=== PATIENT | female | born 1970 | race Caucasian/White ===

== ENCOUNTER → 2017-11-03 | Outpatient (CLI) | payer OTHER ==
[~2017-11-03] MED LIST: ALBU90OI INH; AMLO5 PO; ASPI81CH PO; Advair Hfa 230-12 GM INH; Desyrel50 MG PO; EPIPEN0.3 MG/0.3 IM; GABA300 PO; GLIP5 PO; LOSHYD100 PO; METF500C PO; PIOG15 PO; Pulmicort Flex90 MCG IH; SERT50 PO; VENL37.5ER PO; [UNRECOGNIZED DRUG - OTHER] PO; [UNRECOGNIZED DRUG - OTHER] TOP
[2017-11-04 14:09] LABS: HPV 16 Negative (Negative); HPV 18 Negative (Negative); HPV OTHER HR TYPES Negative (Negative)
== END ==
LOC: LAB SHORT 11:38 → LAB 11:38
PROVIDERS: Registered Nurse Community Health
DX: Z12.4 Encounter for screening for malignant neoplasm of cervix (principal)
CPT/HCPCS: 87624; G0123

== ENCOUNTER → 2017-12-22 | Outpatient (CLI) | payer OTHER | END | disposition home or self-care (01) | LOC: LAB SHORT 15:28 → LAB 15:28 | DX: N89.8 Other specified noninflammatory disorders of vagina (principal) | CPT/HCPCS: 87070; 87205 ==

== ENCOUNTER 2018-06-29 16:04 | Inpatient (IN) | payer OTHER ==
[~2018-06-29] VITALS: Ht 157.5 cm; Wt 116.4 kg
[~2018-06-29 16:04] MED LIST changes: +ALBU3IS NEB; +CYCL10 PO; +FENO48 PO; +FLUTICASONE-SA1 EAC2 INH; +Hydroxyzine HCl50 MG PO; +LOSA25; +LOSARTAN-HCTZ1 EAC1 PO; +SERT100 PO
[2018-07-02] MEDS ORDERED: GLIP5 PO (07:14)
[2018-07-02] MEDS ORDERED: AMLO5 PO (07:15)
[2018-07-02] MEDS ORDERED: HYDPAM50 PO (07:17)
--- NOTE | 2018-07-02 07:20 | NUR ---
PATIENT GAVE ME PERMISSION TO CARE FOR HER TODAY 07/02/18. History, Chart, Medications and Allergies reviewed before start of procedure.Patient confirms NPO status and agrees with scheduled surgery. Patient reports completing Chlorhexadine shower X2 prior to admission to hospital.Surgical site prepped with 2% Chlorhexidine cloth wipe. Lungs clear T/O to Auscultation.
--- NOTE | 2018-07-02 07:38 | NUR ---
STUDENT NURSE BRYN ASSISSTING WITH PREOPERATIVE CARE. AGREE WITH HER CHARTING AND CARE.
--- NOTE | 2018-07-02 10:30 | NUR ---
REPORT FROM PACU.
--- NOTE | 2018-07-02 10:46 | NUR ---
PT TO ROOM 231 FROM PACU VIA BED.
--- NOTE | 2018-07-02 10:50 | NUR ---
ICE WATER AND JELLO/CRACKERS PROVIDED. VSS.
--- NOTE | 2018-07-02 11:50 | NUR ---
PT MEDICATED WITH 1 OXY PO PER EMAR. CLIMARA PATCH APPLIED TO PT.
--- NOTE | 2018-07-02 12:10 | NUR ---
LUNCH TRAY PROVIDED TO PT. PT STATES SHE IS COMFORTABLE AT THIS TIME. DENIES NEEDS.
--- NOTE | 2018-07-02 12:48 | NUR ---
PT RESTING IN POSTITION OF COMFORT. PERSONAL FAN PROVIDED TO PT PER REQUEST. NO OTHER COMPLAINTS NOTED.
--- NOTE | 2018-07-02 13:45 | NUR ---
2 DAVID PROVIDED TO PT PER REQUEST. DENIES OTHER NEEDS. PT FAMILY APPEARS TO BE SLEEPING IN CHAIR.
--- NOTE | 2018-07-02 14:40 | NUR ---
PER PT REQUEST OUTSIDE SOUP LIKE MEAL MICROWAVED FOR PT AND HER .
--- NOTE | 2018-07-02 15:22 | NUR ---
PT UP OUT OF BED WITH 1 PERSON ASSIST. PT USES HOME WALKER. AMB APPROX 15FT. ASSISTED BACK TO BED. AMES EMPTIED. PT STATES SHE NAUSEATED.
--- NOTE | 2018-07-02 15:38 | NUR ---
PT MEDICATED WITH 4MG ZOFRAN IV FOR NAUSEA. ALSO MEDICATED WITH 5MG OXY FOR C/O PAIN 12/08.
--- NOTE | 2018-07-02 16:34 | NUR ---
PT MEDICATED WITH TORADOL. PAIN 07/08. STATES NAUSEA IMPROVED. ASKING FOR SOMETHING TO EAT AND ROOT BEER. EXPLAINED TO PT THAT I WILL ORDER ADDITIONAL FOOD ITEMS FROM [employer].
--- NOTE | 2018-07-02 17:00 | NUR ---
ASSUMED CARE OF PATIENT AT THIS TIME. SPOUSE AT BEDSIDE, DENIES ANY NEEDS. DINNER TRAY BROUGHT FOR PATIENT AND SPOUSE.
--- NOTE | 2018-07-02 19:22 | NUR ---
pt has been stable since this rn assumed care. iv fluids infusing. pt min assist oob. binder on. pas to ble. marita to be dc'd in the am. po meds reported effective for pain. uses call light appropriately.
[2018-07-03 05:03] LABS: BASOPHILS ABSOLUTE AUTO 0.02 K/mm3 (0.00-0.23); BASOPHILS PERCENT AUTO 0 % (0-2); EOSINOPHILS ABSOLUTE AUTO 0.01 K/mm3 (0.00-0.68); EOSINOPHILS PERCENT AUTO 0 % (0-6); Hematocrit 37.7 % (33.0-51.0); IMMATURE GRAN ABSOLUTE AUTO 0.08 K/mm3 (0.00-0.10); IMMATURE GRAN PERCENT AUTO 1 % (0-1); LYMPHOCYTES ABSOLUTE AUTO 1.38 K/mm3 (0.84-5.20); LYMPHOCYTES PERCENT AUTO 9 % (21-46); MONOCYTES ABSOLUTE AUTO 1.01 K/mm3 (0.16-1.47); MONOCYTES PERCENT AUTO 6 % (4-13); Mean Corpuscular HGB Conc 31.8 g/dL (31.5-36.5); Mean Corpuscular Volume 88 fL (80-100); Mean Platelet Volume 9.9 fL (9.1-12.4); NEUTROPHILS ABSOLUTE AUTO 13.34 K/mm3 (1.96-9.15); NEUTROPHILS PERCENT AUTO 84 % (41-73); Platelet Count 169 K/mm3 (150-400); RDW Coefficient Variation 13.8 % (11.7-14.2); RDW Standard Deviation 44.1 fL (35.1-46.3); Red Blood Cell Count 4.28 M/mm3 (3.80-5.20); White Blood Cell Count 15.84 K/mm3 (4.00-11.30)
--- NOTE | 2018-07-03 06:28 | NUR ---
SUMMARY: PT IS POD1 LAVH. PT DID WELL OVERNIGHT. VSS, A/O. HAS BEEN UP WALKING, MINIMAL ASSIST. MEDICATED FOR PAIN PRN, SEE EMAR. SURGICAL SITE WNL, NO VAGINAL BLEED NOTED. PT TOLERATING REGULAR DIET. REPORTS PASSING GAS SEVERAL TIMES. NO ACUTE CONCERNS AT THIS TIME.
--- NOTE | 2018-07-03 14:16 | NUR ---
PT MEDICATED WITH 1 OXY PER EMAR. 2 DAVID RUCKER.
--- NOTE | 2018-07-03 17:26 | NUR ---
SHIFT SUMMARY NO ACUTE CHANGES THIS SHIFT. VSS. PT TAKING 1-2 PERCOCET FOR PAIN. TRANSVERSE INCISION CDI. PT VOIDING SMALL AMOUNTS FREQUENTLY. BLADDER SCAN SHOWS MINIMAL URINE RETAINING IN BLADDER. PT AMBULATING HALLWAYS WITH WALKER INDEP. DINESH REG PO INTAKE. PASSING GAS. SMALL VAGINAL BLEEDING. PT RECEIVING IV ABX AND REPEAT LABS IN THE MORNING. PT USES CALL LIGHT APPROPRIATELY.
[2018-07-04 04:57] LABS: BASOPHILS ABSOLUTE AUTO 0.04 K/mm3 (0.00-0.23); BASOPHILS PERCENT AUTO 0 % (0-2); EOSINOPHILS ABSOLUTE AUTO 0.14 K/mm3 (0.00-0.68); EOSINOPHILS PERCENT AUTO 2 % (0-6); Hematocrit 37.7 % (33.0-51.0); Hemoglobin 11.6 g/dL (11.5-16.0); IMMATURE GRAN ABSOLUTE AUTO 0.04 K/mm3 (0.00-0.10); IMMATURE GRAN PERCENT AUTO 0 % (0-1); LYMPHOCYTES ABSOLUTE AUTO 2.69 K/mm3 (0.84-5.20); LYMPHOCYTES PERCENT AUTO 30 % (21-46); MONOCYTES ABSOLUTE AUTO 0.63 K/mm3 (0.16-1.47); MONOCYTES PERCENT AUTO 7 % (4-13); Mean Corpuscular HGB 27.3 pg (26.0-34.0); Mean Corpuscular HGB Conc 30.8 g/dL (31.5-36.5); Mean Corpuscular Volume 89 fL (80-100); Mean Platelet Volume 9.6 fL (9.1-12.4); NEUTROPHILS ABSOLUTE AUTO 5.55 K/mm3 (1.96-9.15); NEUTROPHILS PERCENT AUTO 61 % (41-73); Platelet Count 155 K/mm3 (150-400); RDW Coefficient Variation 14.1 % (11.7-14.2); RDW Standard Deviation 45.1 fL (35.1-46.3); Red Blood Cell Count 4.25 M/mm3 (3.80-5.20); White Blood Cell Count 9.09 K/mm3 (4.00-11.30)
--- NOTE | 2018-07-04 07:00 | NUR ---
recvd report from previous shift rn summer, pt sleeping in room, bed in lowest position, call light within reach, bed rails up x 2
--- NOTE | 2018-07-04 09:20 | NUR ---
pt states she has [facility] ambulance for transport. RN will call
--- NOTE | 2018-07-04 11:18 | NUR ---
[facility] notified, will return call notify surgical floor for transport time
[2018-07-04] MEDS ORDERED: Percocet 5-3251 EACH PO (11:40)
[2018-07-04] MEDS ORDERED: IBUP800 PO (11:40)
--- NOTE | 2018-07-04 12:49 | NUR ---
pt's transport arranged for 1300, pt provided with discharge instructions and printed materials, written prescriptions. pt dressed. peripheral IV removed WNL. pt states understanding of discharge instructions. pt ambulating in hallway, will await transportation
--- NOTE | 2018-07-04 13:00 | NUR ---
transport arrived to take pt home, pt escorted to taxi via wheelchair with belongings taken to vehicle
== END 2018-07-04 12:58 | disposition home or self-care (01) | DRG 742 ==
LOC: SURS 07-02 06:01 → PRE IP 07-02 07:30 → SURS 07-02 10:48
PROVIDERS: ADMIT Obstetrics & Gynecology
PROC: 0UT90ZZ Resection of Uterus, Open Approach (ICD-10-PCS; principal; 2018-07-02 07:30)
PROC: 0UB10ZZ Excision of Left Ovary, Open Approach (ICD-10-PCS; 2018-07-02 07:30)
DX: N80.1 Endometriosis of ovary (principal); Z68.42 Body mass index [BMI] 45.0-49.9, adult; N85.2 Hypertrophy of uterus; J44.9 Chronic obstructive pulmonary disease, unspecified; Z87.891 Personal history of nicotine dependence; E66.01 Morbid (severe) obesity due to excess calories; E11.9 Type 2 diabetes mellitus without complications; I10 Essential (primary) hypertension; E78.5 Hyperlipidemia, unspecified; K21.9 Gastro-esophageal reflux disease without esophagitis; F32.9 Major depressive disorder, single episode, unspecified; F41.9 Anxiety disorder, unspecified
CPT/HCPCS: 36415; 82947; 85025; J0690; J1100; J1885; J2250; J2370; J2405; J2704; J2765; J3010; J7120

== ENCOUNTER 2021-08-03 09:08 | Day surgery (SDC) | payer MEDICARE ==
[~2021-08-03] VITALS: Ht 160 cm; Wt 115.8 kg
[~2021-08-03 09:08] MED LIST changes: +Adipex-P37.5 M1 PO; +BASAGLAR K100 UNIT/1 SC; +BREZTRI AEROS10.7 GM INH; +CHOLESTYRAMI239.4 G1 PO; +DICY20 PO; +ESTRADIOL1 MG PO; +Estrace Vagin42.5 GM VAG; +HYDPAM50 PO; +IBUP800 PO; +IPRAT-ALBUT 0.5-3 ML; +LORA10ER PO; +Oxybutynin Chlo10 MG PO; +Percocet 5-3251 EACH PO
[2021-08-03] MEDS ORDERED: LOSARTAN-HCTZ1 EAC5 PO (09:29)
[2021-08-03] MEDS ORDERED: HYDPAM50 PO (09:31)
[2021-08-03] MEDS ORDERED: SERT100 PO (09:32)
--- NOTE | 2021-08-03 09:36 | NUR ---
08/03/21 0936 Hannah Penn BUPIVACAINE 0.5% 30 MLS MIXED W/ EPI 0.15 ML PER ORDER TO MAKE BUPIVACAINE 0.5% 1:200,000. BUPIVACAINE 0.5% 1:200,000 MIXED W/ LIDOCAINE 1% PER ORDER 1:1 FOR INJECTION AT OPSITE BY DR BURLESON.
== END 2021-08-03 10:45 | disposition home or self-care (01) ==
LOC: ORSCSDS 09:08
PROVIDERS: Orthopaedic Surgery
PROC: 0LN80ZZ Release Left Hand Tendon, Open Approach (ICD-10-PCS; principal; 2021-08-03 10:30)
DX: M65.332 Trigger finger, left middle finger (principal); I10 Essential (primary) hypertension; K21.9 Gastro-esophageal reflux disease without esophagitis; J44.9 Chronic obstructive pulmonary disease, unspecified; R01.1 Cardiac murmur, unspecified; E11.9 Type 2 diabetes mellitus without complications; Z87.891 Personal history of nicotine dependence; E66.01 Morbid (severe) obesity due to excess calories; Z68.42 Body mass index [BMI] 45.0-49.9, adult; Z79.899 Other long term (current) drug therapy
CPT/HCPCS: 82947; J0171; J1885; J2250; J2704; J3010

== ENCOUNTER 2024-08-06 12:16 | Day surgery (SDC) | payer MEDICARE, OTHER ==
[~2024-08-06] VITALS: Ht 160 cm; Wt 120.2 kg
[~2024-08-06 12:16] MED LIST changes: +ADVAIR HFA 230-28 GM INH; +ALBU2.5V5 INH; -ALBU3IS NEB; -BASAGLAR K100 UNIT/1 SC; +HUMALOG TE100 UNIT/1; +INSULANPEN SC; +LOSARTAN-HCTZ1 EAC5 PO; +Lactated Ringer's 1,000 ML IV SCH; +OMEPRAZOLE MAGN20 MG PO; +PIOG30 PO; +TRAZ150T57 PO
[2024-08-06 12:54] VITALS: BP 126/67
--- NOTE | 2024-08-06 12:56 | NUR ---
History, Chart, Medications and Allergies reviewed before start of procedure. Pre-Op teaching done. Pt verbalizes understanding. Patient confirms NPO status and agrees with scheduled surgery. Patient States Post-Procedure ride home has been arranged.
--- NOTE | 2024-08-06 13:21 | NUR ---
08/06/24 1321 Pj Ram MONITOR INTACT WITH CONTINUOUS PULSE OXIMETRY, CONTINUOUS END TITAL CO2, 3-LEAD EKG AND INTERMITTENT BLOOD PRESSURE.Bite Block Placed
[2024-08-06] MEDS ORDERED: Lidocaine HCl 2% 10 ML SDA ONE (13:28)
[2024-08-06 13:33] VITALS: BP 127/65
== END 2024-08-06 14:00 | disposition home or self-care (01) ==
LOC: ORSCMMR 12:16 → ORD 14:15
PROVIDERS: Internal Medicine Gastroenterology
PROC: 0DJ08ZZ Inspection of Upper Intestinal Tract, Via Natural or Artificial Opening Endoscopic (ICD-10-PCS; principal; 2024-08-06 14:15)
DX: K21.9 Gastro-esophageal reflux disease without esophagitis (principal); R13.10 Dysphagia, unspecified; E66.01 Morbid (severe) obesity due to excess calories; Z68.42 Body mass index [BMI] 45.0-49.9, adult; G47.33 Obstructive sleep apnea (adult) (pediatric); I10 Essential (primary) hypertension; J44.89 Other specified chronic obstructive pulmonary disease; E11.42 Type 2 diabetes mellitus with diabetic polyneuropathy; F41.1 Generalized anxiety disorder
CPT/HCPCS: 82947; J2003; J7120

== ENCOUNTER 2024-08-13 01:28 | Emergency (ER) | payer MEDICARE, OTHER ==
[~2024-08-13] VITALS: Ht 162.6 cm; Wt 158.8 kg
[~2024-08-13 01:28] MED LIST changes: -Lactated Ringer's 1,000 ML IV SCH
[2024-08-13 02:50] LABS: BASOPHILS ABSOLUTE AUTO 0.05 K/mm3 (0.00-0.23); BASOPHILS PERCENT AUTO 1 % (0-2); EOSINOPHILS PERCENT AUTO 2 % (0-6); Hematocrit 39.6 % (33.0-51.0); Hemoglobin 13.6 g/dL (11.5-16.0); IMMATURE GRAN ABSOLUTE AUTO 0.07 K/mm3 (0.00-0.10); IMMATURE GRAN PERCENT AUTO 1 % (0-1); LYMPHOCYTES PERCENT AUTO 27 % (21-46); MONOCYTES ABSOLUTE AUTO 0.53 K/mm3 (0.16-1.47); MONOCYTES PERCENT AUTO 6 % (4-13); Mean Corpuscular HGB 29.4 pg (26.0-34.0); Mean Corpuscular HGB Conc 34.3 g/dL (31.5-36.5); Mean Corpuscular Volume 86 fL (80-100); Mean Platelet Volume 9.9 fL (9.1-12.4); NEUTROPHILS ABSOLUTE AUTO 5.51 K/mm3 (1.96-9.15); NEUTROPHILS PERCENT AUTO 63 % (41-73); Platelet Count 215 K/mm3 (150-400); RDW Coefficient Variation 12.7 % (11.7-14.2); RDW Standard Deviation 38.9 fL (35.1-46.3); Red Blood Cell Count 4.63 M/mm3 (3.80-5.20); White Blood Cell Count 8.76 K/mm3 (4.00-11.30)
[2024-08-13 03:55] LABS: Albumin, Blood 3.3 g/dL (3.4-5.0); Albumin/Globulin Ratio 0.9 (0.8-1.8); Bilirubin, Total 0.3 mg/dL (0.1-1.0); Creatinine, Blood 0.63 mg/dL (0.40-1.00); Globulin, Blood 3.6 g/dL (2.2-4.0); Potassium, Blood 3.9 mmol/L (3.5-5.5); Total Protein, Blood 6.9 g/dL (6.4-8.2)
[2024-08-13] MEDS ORDERED: Acetaminophen 500 MG Tab PO ONE (06:15)
[2024-08-13 08:34] VITALS: BP 134/60
== END 2024-08-13 08:36 | disposition home or self-care (01) ==
LOC: ER 01:28
PROVIDERS: Student in an Organized Health Care Education/Training Program
DX: R07.89 Other chest pain (principal); Z79.51 Long term (current) use of inhaled steroids; Z79.899 Other long term (current) drug therapy; Z79.4 Long term (current) use of insulin; Z88.0 Allergy status to penicillin; Z88.1 Allergy status to other antibiotic agents; Z88.5 Allergy status to narcotic agent; Z91.030 Bee allergy status; Z88.8 Allergy status to other drugs, medicaments and biological substances
CPT/HCPCS: 71046; 80053; 84484; 85025; 93005; 93010; 99285-25; A9270